=== PATIENT | female | born 1955 | race Caucasian/White ===

== ENCOUNTER 2017-05-01 08:45 | Inpatient (IN) | payer OTHER ==
[2017-04-16 12:53] VITALS: Ht 152.4 cm; Wt 67.5 kg
--- NOTE | 2017-04-16 13:28 | PAT Medication Instructions ---
Service Date Apr 16, 2017. Current Home Medication List Cholecalciferol (Vitamin D3), 5,000 UNITS PO QAM Ibuprofen Tab (Advil), 600 MG PO PRN Medication Instructions For Your Scheduled Surgery - Check with surgeon for instructions: Ibuprofen Tab (Advil), 600 MG PO PRN - Hold the following medications the morning of surgery: Cholecalciferol (Vitamin D3), 5,000 UNITS PO QAM If you have any questions please call us at [phone] or [phone] or [phone]
[2017-04-16 14:17] LABS: PTT PATIENT 25.8 SECONDS (21.0-31.0)
--- NOTE | 2017-04-16 14:18 | DIAGNOSTIC IMAGING REPORT ---
CHEST 2 VIEWS ROUTINE CLINICAL HISTORY: Preoperative chest COMPARISON STUDY: No previous studies for comparison. FINDINGS: The cardiac and mediastinal contours are normal. There is no evidence of focal pulmonary consolidation. There is no evidence of failure. No pleural effusions are visualized.[ IMPRESSION: No active disease in the chest. Electronically signed by: Job Mckeon M.D. 04/16/2017 2:17 PM Dictated Date/Time: 04/16/2017 2:17 PM
[2017-04-16 14:34] LABS: HEMOGLOBIN A1C 5.2 % (4.5-5.6)
--- NOTE | 2017-04-17 09:03 | HISTORY & PHYSICAL EXAMINATION ---
DATE OF ADMISSION: 05/01/2017 CHIEF COMPLAINT: Right hip pain. HISTORY OF PRESENT ILLNESS: Celestina is a 62-year-old female with a multiple year history of right hip pain. She rates her pain at 8-9/10. She has pain with her daily activities. She has limited standing and walking tolerance. Pain is worse with weightbearing. The patient has had Advil and injections in the past without relief. She has failed conservative treatment and is scheduled for a right hip replacement. PAST MEDICAL HISTORY: History of phlebitis. She denies heart disease, diabetes, or DVT. PAST SURGICAL HISTORY: Left shoulder rotator cuff repair and hysterectomy. SOCIAL HISTORY: The patient denies alcohol or tobacco use. She lives in a single story home. She is and works at [employer]. FAMILY HISTORY: Negative for DVT. MEDICATIONS: Vitamin D3 and Advil p.r.n. ALLERGIES: None. REVIEW OF SYSTEMS: See HPI. Ten other systems reviewed, all negative. PHYSICAL EXAMINATION: VITAL SIGNS: Height 5 feet 0 inch and weight 145 pounds. GENERAL: This is a well-developed and well-nourished female, who is alert and oriented x3. Mood and affect are appropriate. HEENT: Normocephalic and atraumatic. Mucous membranes are moist and intact. NECK: Supple without lymphadenopathy. HEART: Regular rate and rhythm without murmurs, rubs or gallops. LUNGS: Clear to auscultation without wheezes or rhonchi. ABDOMEN: Soft and nontender. Bowel sounds are equal and active. EXTREMITIES: No ecchymosis, redness or warmth. Log roll of the hip reproduces pain in the groin. Range of motion is decreased. She is neurovascularly intact with +5/5 strength. X-RAY EXAMINATION: AP and lateral views show joint space narrowing and osteophyte formation. IMPRESSION: Degenerative joint disease, right hip. PLAN: The patient will be admitted for a right total hip arthroplasty with Dr. Israel. We will plan on aspirin 325 mg for DVT prophylaxis. She will have [facility] for home physical therapy upon discharge.
[~2017-05-01] VITALS: Ht 152.4 cm; Wt 67.5 kg
[2017-05-01] VITALS (7 sets, daily range): BP systolic 93–150; BP diastolic 60–88; PULSE 75–92; TEMP 36.2–36.7; O2SAT 96–100
[~2017-05-01 08:45] MED LIST: ACETAMINOPHEN 500 MG TAB PO SCH; ATROPINE SULFATE 0.1 MG/ML 5ML SYR IV PRN; BUPIVACAINE 0.5 % 5 MG/1 ML PF 10ML VIAL ONE; CEFAZOLIN 1000MG IV PUSH 5 ML IV SCH; CHOL20007 PO; CeleBREX 200 MG CAP PO SCH; DEXAMETHASONE 4 MG TAB PO SCH; EpHEDrine SULFATE INJ 50 MG/ML AMP IV PRN; FAMOTIDINE 20 MG TAB PO SCH; FENTANYL CITRATE INJ 50 MCG/1 ML 2 ML VIAL ONE; GABAPENTIN 300 MG CAP PO SCH; HYDROmorphone INJ 2 MG/ML SYR/VIAL IV PRN; IBUP-103 PO; LACTATED RINGER'S 1000ML 1,000 ML IV SCH; LACTATED RINGER'S 1000ML 500 ML IV SCH; LACTATED RINGER'S 1000ML IV SCH; METOCLOPRAMIDE HCL 10 MG TAB PO SCH; MIDAZOLAM HCL 1 MG/ML 2ML VIAL ONE; ONDANSETRON INJ 2 MG/ML 2 ML VIAL IV PRN; PHENYLEPHRINE 100MCG/ML 5ML SYR IV PRN; PROPOFOL IV EMULSION 10 MG/ML 20 ML VIAL IV ONE; ROPIVACAINE 5MG/ML 30 ML 150 MG, BUPIVACAINE 0.5% MPF INJ 30 ML, EpINEphrine HCL INJ 0.... INFIL SCH
--- NOTE | 2017-05-01 09:43 | History & Physical Bridge Note ---
H&P Re-Evaluation Bridge Note: I have examined the patient, reviewed the History & Physical and in the interval since the performance of the History & Physical I have noted the following changes of clinical significance: No changes noted
[2017-05-01] MEDS ORDERED: ORTHO JOINT ANESTHETIC ONE (09:52)
[2017-05-01] MEDS ORDERED: POVIDONE-IODINE OP SOLN 30 ML BTL ONE (09:53)
[2017-05-01] MEDS ORDERED: BACITRACIN 50000 UNIT VIAL ONE (09:53)
[2017-05-01] MEDS: TRANEXAMIC ACID INJ 1,000 MG in SYRINGE 0 ML IV SCH ×2 (11:10→16:01)
[2017-05-01] MEDS ORDERED: MIDAZOLAM HCL 1 MG/ML 2ML VIAL ONE ×2 (11:38→12:39)
[2017-05-01] MEDS ORDERED: PHENYLEPHRINE 100MCG/ML 5ML SYR ONE (11:41)
[2017-05-01] MEDS ORDERED: EpHEDrine SULFATE 50MG/5ML SYR ONE (11:50)
[2017-05-01] MEDS ORDERED: PROPOFOL IV EMULSION 10 MG/ML 20 ML VIAL IV ONE (12:59)
[2017-05-01] MEDS ORDERED: PHENYLEPHRINE HCL INJ 10 MG/ML VIAL ONE (13:01)
[2017-05-01] MEDS ORDERED: ONDANSETRON INJ 2 MG/ML 2 ML VIAL ONE (13:31)
[2017-05-01] MEDS ORDERED: ONDANSETRON INJ 2 MG/ML 2 ML VIAL IV PRN (13:45)
[2017-05-01] MEDS ORDERED: MoRPHine SULFATE 4 MG/ML 1 ML CARP\\VIAL IV PRN (13:45)
[2017-05-01] MEDS ORDERED: OXYCODONE HCL IR 5 MG TAB (IMMEDIATE RELEASE) PO PRN (13:45)
--- NOTE | 2017-05-01 13:50 | [facility] Post Operative Brief Note ---
Immediate Operative Summary Operative Date May 01, 2017. Pre-Operative Diagnosis Right Hip Degenerative Joint Disease Post-Operative Diagnosis Right Hip Degenerative Joint Disease Procedure(s) Performed Right Total Hip Arthroplasty Surgeon Dr. Israel Sorter Packer Surgeon(s) Maggie Szymanski PA-C Estimated Blood Loss 100 mL Findings see dictated op note Fluids (cc crystalloids) 2200 Specimens A: Right Femoral Head- specimen to go to K-9 unit, lab made aware Drains none Anesthesia spinal Complication(s) None Disposition Recovery Room / PACU
--- NOTE | 2017-05-01 14:30 | Anesthesiology Progress Note ---
Anesthesia Post Op Note Date & Time May 01, 2017 at 14:30 Vital Signs Pain Intensity: 0 Vital Signs Past 12 Hours Date Time Temp Pulse Resp B/P (MAP) Pulse Ox O2 Delivery O2 Flow Rate FiO2 05/01/17 14:20 65 13 110/71 100 Oxymask 10 05/01/17 14:10 36.0 84 12 98/63 100 Oxymask 10 05/01/17 09:18 36.7 92 18 150/88 97 Room Air Notes Mental Status: alert / awake / arousable, participated in evaluation Pt Amnestic to Procedure: Yes Nausea / Vomiting: adequately controlled Pain: adequately controlled Airway Patency, RR, SpO2: stable & adequate BP & HR: stable & adequate Hydration State: stable & adequate Anesthetic Complications: no major complications apparent
--- NOTE | 2017-05-01 14:45 | DIAGNOSTIC IMAGING REPORT ---
R PELVIS/UNILATERAL HIP 1 VIEW CLINICAL HISTORY: Right hip osteoporosis. Arthroplasty. COMPARISON: None FINDINGS: Alignment of the total right hip arthroplasty is anatomic. There is no periprosthetic fracture or unexpected radiopaque foreign body. Acetabular screw is in place. IMPRESSION: Expected findings following total right hip arthroplasty. Electronically signed by: Cecilio Shah M.D. 05/01/2017 2:43 PM Dictated Date/Time: 05/01/2017 2:42 PM
[2017-05-01] MEDS: SODIUM CHLORIDE 0.9% 1000ML 1,000 ML IV SCH (16:01)
--- NOTE | 2017-05-01 16:16 | Orthopedic Progress Note ---
Orthopedic Progress Note Date of Service May 01, 2017. Subjective Reports: feeling well, pain controlled w PO medications, Denies: complaints, chest pain, SOB, nausea / vomiting, light headedness, calf pain Additional Notes: Patient seen laying in bed, comfortable, pain well controlled, still feeling effects of spinal and local anesthesia. Objective RLE decreased sensation grossly, still feeling effects of spinal/local anesthetic. +2 DP pulse, dressing CDI, compartments soft NT Date Time Temp Pulse Resp B/P (MAP) Pulse Ox O2 Delivery O2 Flow Rate FiO2 05/01/17 16:05 36.2 88 16 100/65 (77) 99 Nasal Cannula 2.0 05/01/17 15:00 36.4 76 13 103/60 99 Nasal Cannula 2 05/01/17 14:45 78 20 93/60 100 Nasal Cannula 2 05/01/17 14:40 77 14 100/59 100 Nasal Cannula 2 05/01/17 14:30 75 24 96/67 100 Nasal Cannula 2 05/01/17 14:20 65 13 110/71 100 Oxymask 10 05/01/17 14:10 36.0 84 12 98/63 100 Oxymask 10 05/01/17 09:18 36.7 92 18 150/88 97 Room Air Assessment & Plan Assessment: s/p R SUSAN -NV checks -Ancef x 24hr -DVT ppx: ASA BID -WBAT RLE with assistance -PT/OT -PO XR: well aligned, well fixed prothesis, no fractures/dislocation -AM labs -DC planing: Home with home health
[2017-05-01] MEDS: CEFAZOLIN IV 2,000 MG in SYRINGE 0 ML IV SCH (19:59)
--- NOTE | 2017-05-01 20:33 | [facility] Operative Report ---
Operative Report Operative Date May 01, 2017. Pre-Operative Diagnosis Right Hip Degenerative Joint Disease Post-Operative Diagnosis Right Hip Degenerative Joint Disease Procedure(s) Performed Right Total Hip Arthroplasty Surgeon Dr. Israel Sap Pi Developer Surgeon(s) Maggie Szymanski PA-C Estimated Blood Loss 100 mL Findings see dictated op note Fluids 2200 Specimens A: Right Femoral Head- specimen to go to K-9 unit, lab made aware Drains none Anesthesia spinal Complication(s) None Disposition Recovery Room / PACU Indications The patient is a 62-year-old female who presents with severe progressive right hip DJD who has failed outpatient conservative treatments. I indicated the patient for a total hip replacement and the risks and benefits were explained in detail which included but not limited to infection, bleeding, blood clot, damage to surrounding bone, nerves, vessels, soft tissue, hip dislocation, failure of the prosthesis, leg length discrepancy, need for additional surgery and . The patient agreed to proceed with replacement of the right hip and informed consent was obtained. Description of Procedure Following induction of adequate spinal anesthesia, the patient was transferred to the OR table and placed in lateral decubitus position with left hip down. The right hip was prepped and draped in the typical sterile fashion and a posteriorlateral/Rishi-Langenbeck incision was made. Subcutaneous tissue was sharply dissected. Electrocautery was utilized for hemostasis. The fascia was incised throughout the length of the wound and retracted with the Charnley retractor. The bursa was taken down and the short external rotators were identified. The piriformis was tagged with #1 Vicryl. The short external rotators and capsule were divided from the posterior aspect of the femurusing electrocautery. The posterior capsule was tagged with #1 Vicryl. Both external rotators and posterior capsule were swept posteriorly and protected, along with protecting the sciatic nerve. The hip was dislocated by flexion and internally rotation in a controlled manner and exposure of the femoral neck was gained with an old-style Hohmann and a blunt cobra retractor. A femoral cutting guide was utilized for making the appropriate level femoral neck cut with reciprocating saw. The femoral head was removed, measured and reserved on the back table. Next, attention was turned to the acetabulum. A posterior and anterior offset retractor was placed to gain adequate exposure. Acetabular labrum as well as posterior capsule elements were removed using electrocautery and forceps. Fovea centralis was cleared of all soft tissue. Sequential reaming was performed starting at 44mm and carried up to a 49mm and decision was made to proceed with impaction of a 50mm trabecular metal cup. This was impacted and held using a single 30 mm bone screw. The trial acetabular liner was placed at this time. Next, attention was turned to the femoral portion of the case where a Bovie and pickup was used to further clear short external rotators from their insertion on the femur. Box osteotome and canal finder was used to gain access to the femoral canal and the lateral reamer on power was used to further open the proximal lateral canal. Sequentially rasping was carried up to a 9 which gave good fit and fill of the proximal femur. A trial reduction was carried out with a extended offset femoral neck component a -3.5 x 36 mm femoral head. The trial reduction was stable in all degrees of rotation with no [id number] impingement. The hip was dislocated, trial components were removed and access to the acetabulum was re-established. The trial liner was removed and the cup was irrigated to ensure all debris was removed. The final acetabular liner was inserted and properly seated in the cup. Access to the femur was once more gained and the size 9 femoral stem with extended offset was impacted into position. The hip was once more assessed with the -3.5 x 36mm femoral head. Stability was accessed and found to be excellent with equal leg lengths. The hip was dislocated for the last time and the final -3.5 x 36mm ceramic femoral head was impacted in place and the hip was reduced. Range of motion was checked once again and found to be stable. The wound was copiously irrigated with sterile saline solution. The malia-incisional soft tissue was injected utilizing [place] ortho mix which includes a combination of Ropivicaine 0.5% 150mg, Bupivicaine 0.5%/Epinephrine 1:200,000 30ml, Toradol 30mg, Dexamethasone 4mg, Ketamine 10mg, Clonidine 100mcg and NSS 30ml Orthomix solution. The piriformis, external rotators and capsule were repaired to the greater trochanter through bone tunnels using #5 FiberWire. The fascia was closed using #1 Vicryl, subcutaneous tissue was closed using 2-0 Vicryl, and skin was closed with 3-0 V-lock suture and Dermabond Prineo. Sterile dressings were applied which included pancho, 4x4s and tegaderm adhesive dressing. The patient tolerated the procedure well and was transported to PACU in stable condition. Due to the complex nature of the procedure, the entire surgery was performed with the operational assistance of Lizzette Szymanski PA-C. The certified ophthalmic assistant, under direct supervision, was involved in the actual performance of all aspects of the surgical procedure including hemostasis, tissue retraction and incision, instrument management, patient positioning, and wound closure. I attest to the content of the Intraoperative Record and any orders documented therein. Any exceptions are noted below.
[2017-05-01] MEDS ORDERED: SENNA 8.6 MG TAB PO SCH (21:00)
[2017-05-01] MEDS: ACETAMINOPHEN 500 MG TAB PO SCH (21:47)
[2017-05-01] MEDS: ASPIRIN 325 MG ECTAB PO SCH (21:48)
[2017-05-01] MEDS: DOCUSATE SODIUM 100 MG CAP PO SCH (21:49)
[2017-05-02] MEDS: SODIUM CHLORIDE 0.9% 1000ML 1,000 ML IV SCH ×2 (01:45→10:59)
[2017-05-02 03:16] VITALS: BP 95/60; PULSE 83; TEMP 36.6; O2SAT 97
[2017-05-02] MEDS: CEFAZOLIN IV 2,000 MG in SYRINGE 0 ML IV SCH (04:16)
[2017-05-02 06:32] LABS: BASO % 0.1 %; BASO ABS # 0.01 K/uL (0-0.2); HEMATOCRIT 32.2 % (37-47); HEMOGLOBIN 10.8 g/dL (12.0-16.0); IG# 0.04 K/uL (0.00-0.02); LYMPH % 12.6 %; LYMPH ABS # 1.32 K/uL (1.2-3.4); MEAN CELL VOLUME 90.4 fL (80-100); MEAN CORPUSCULAR HEMOGLOBIN 30.3 pg (25-34); MEAN CORPUSCULAR HGB CONC 33.5 g/dl (32-36); MONO ABS # 0.84 K/uL (0.11-0.59); NEUT % 78.9 %; NEUT ABS # 8.26 K/uL (1.4-6.5); PLATELET COUNT 189 K/uL (130-400); RED CELL DISTRIBUTION WIDTH CV 13.6 % (11.5-14.5); RED CELL DISTRIBUTION WIDTH SD 45.1 fL (36.4-46.3); WHITE BLOOD COUNT 10.47 K/uL (4.8-10.8)
[2017-05-02] MEDS: ACETAMINOPHEN 500 MG TAB PO SCH (06:33)
[2017-05-02 07:07] LABS: CALCIUM 8.7 mg/dl (8.5-10.1); CREATININE 0.81 mg/dl (0.60-1.20); POTASSIUM 3.9 mmol/L (3.5-5.1)
--- NOTE | 2017-05-02 07:40 | Orthopedic Progress Note ---
Orthopedic Progress Note Date of Service May 02, 2017. Subjective Post OP Day: 1 Reports: feeling well, Denies: complaints, SOB, nausea / vomiting, light headedness, calf pain, pain controlled w PO medications Additional Notes: Patient seen, comfortable, pain well controlled overnight, c/o stiffness, no acute issues Objective RLE NVSI +EHL/FHL/TA/GS SILT grossly, CR< 2 seconds, compartments soft NT, dressing CDI Date Time Temp Pulse Resp B/P (MAP) Pulse Ox O2 Delivery O2 Flow Rate FiO2 05/02/17 03:16 36.6 83 18 95/60 (72) 97 Room Air 05/01/17 23:35 Room Air 05/01/17 23:06 36.4 77 18 97/60 (72) 96 Room Air 05/01/17 19:17 97 Room Air 05/01/17 18:47 36.4 75 16 100/66 (77) 96 Nasal Cannula 2.0 05/01/17 17:33 36.2 85 18 93/62 (72) 99 Nasal Cannula 2.0 05/01/17 16:33 36.3 83 16 99/66 (77) 100 Nasal Cannula 2.0 05/01/17 16:05 36.2 88 16 100/65 (77) 99 Nasal Cannula 2.0 05/01/17 15:30 Nasal Cannula 2.0 05/01/17 15:30 Nasal Cannula 2.0 05/01/17 15:00 36.4 76 13 103/60 99 Nasal Cannula 2 05/01/17 14:45 78 20 93/60 100 Nasal Cannula 2 05/01/17 14:40 77 14 100/59 100 Nasal Cannula 2 05/01/17 14:30 75 24 96/67 100 Nasal Cannula 2 05/01/17 14:20 65 13 110/71 100 Oxymask 10 05/01/17 14:10 36.0 84 12 98/63 100 Oxymask 10 05/01/17 09:18 36.7 92 18 150/88 97 Room Air Laboratory Results 24 Hours: Test 05/02/17 05:59 White Blood Count 10.47 K/uL Red Blood Count 3.56 M/uL Hemoglobin 10.8 g/dL Hematocrit 32.2 % Mean Corpuscular Volume 90.4 fL Mean Corpuscular Hemoglobin 30.3 pg Mean Corpuscular Hemoglobin Concent 33.5 g/dl Platelet Count 189 K/uL Mean Platelet Volume 9.0 fL Neutrophils (%) (Auto) 78.9 % Lymphocytes (%) (Auto) 12.6 % Monocytes (%) (Auto) 8.0 % Eosinophils (%) (Auto) 0.0 % Basophils (%) (Auto) 0.1 % Neutrophils # (Auto) 8.26 K/uL Lymphocytes # (Auto) 1.32 K/uL Monocytes # (Auto) 0.84 K/uL Eosinophils # (Auto) 0.00 K/uL Basophils # (Auto) 0.01 K/uL Prothromb Time International Ratio 1.0 Prothrombin Time 10.8 SECONDS Assessment & Plan Assessment: s/p R SUSAN POD#1 -NV checks -Ancef x 24hr -DVT ppx: ASA BID -WBAT RLE with assistance -PT/OT -PO XR: well aligned, well fixed prothesis, no fractures/dislocation -AM labs - hgb 10.8 -DC planing: Home with home health today
[2017-05-02] MEDS ORDERED: ACET-24 PO (07:46)
[2017-05-02] MEDS ORDERED: CLB200 PO (07:46)
[2017-05-02] MEDS ORDERED: ASPEC325 PO (07:46)
[2017-05-02] MEDS ORDERED: ONDA8TAB6 PO (07:46)
[2017-05-02] MEDS ORDERED: RXC5 PO (07:46)
[2017-05-02] MEDS ORDERED: SENN-61 PO (07:46)
--- NOTE | 2017-05-02 07:47 | Discharge Instructions ---
Discharge Instructions Date of Service May 02, 2017. Admission Reason for Admission: Right Hip Osteoarthritis Discharge Discharge Diagnosis / Problem: sp right SUSAN Discharge Goals Goal(s): Decrease discomfort, Improve function, Increase independence Activity Recommendations Activity Limitations: per Instructions/Follow-up section . Instructions / Follow-Up Instructions / Follow-Up ACTIVITY RECOMMENDATIONS: SELF CARE INSTRUCTIONS AFTER TOTAL HIP REPLACEMENT Until the incision and soft tissues around your hip have healed, there is a possibility that the hip prosthesis could dislocate. A. Observe the following precautions to prevent dislocation: 1. Don't bend your hip greater than 90 degrees. 2. Avoid crossing your legs or ankles while standing or lying. 3. Sit with your feet placed 6 inches apart. 4. When sitting, keep your knees below your hips. Sit on a firm surface, avoid deep, soft chairs and couches. Use an elevated toilet seat in the bathroom. 5. Don't bend over at the waist. Use a long handled shoehorn and a sock aid to help you put on your shoes and socks. A speech therapist early intervention can help you pickup driver objects that are too high or too low to reach. 6. Keep car riding to a minimum for at least one month after surgery. B. Your balance may be shaky for a while. Use crutches or a walker until directed by your doctor. C. Use hand rails when walking on stairs. D. Wear low heeled shoes with non-slip soles. E. Be sure that your floors are free of things that could trip you - throw rugs , electrical cords, small objects. Avoid wet and waxed floors, especially with crutches and canes. F. Try to walk several times a day with rest periods between. G. Continue with all the exercises taught to you in the hospital. Again, make walking a part of your daily routine. SPECIAL CARE INSTRUCTIONS: VERY IMPORTANT TO READ AND REVIEW A. You may still be at risk for phlebitis and blood clots. 1. Wear surgical stockings (YSABEL hose) for 2 weeks after surgery to improve circulation and reduce swelling. 2. Take Aspirin 325 mg twice daily for 4 weeks or as directed by your doctor. This is your blood thinner. 3. High risk patients may be prescribed a stronger blood thinner if necessary. 4. If you are on Coumadin normally, your family doctor/saddle stitch operator should monitor your blood work. Expect a phone call the day of or the day after bloodwork is drawn to adjust your dosage. B. You must take antibiotics before having dental work, bladder, bowel and other surgery. Your doctor will provide you with a permanent card to carry describing precautions. C. Call [facility] if you have a fever, redness or swelling around the incision, cloudy drainage from incision, or sudden increase in pain in your hip, not relieved by your regular pain medication. D. Please call the office at if you have any concerns or questions about your operation or recovery. * YOU MAY SHOWER, NO TUB BATHS UNTIL CLEARED BY YOUR DOCTOR. * WEAR YSABEL HOSE 20 HOURS PER DAY FOR 2 WEEKS. * YOU SHOULD USE A WALKER OR CRUTCHES FOR 2-4 WEEKS. THIS WILL HELP PREVENT STRAIN ON YOUR HIP MUSCLE AND ALLOW IT TO HEAL PROPERLY. YOU MAY WEAN TO A CANE TOLERATED. * MOST PATIENTS WILL HAVE HOME NURSING FOR THERAPY. IF YOU DECIDE TO DO OUTPATIENT PHYSICAL THERAPY, PLEASE SCHEDULE THIS 3 TIMES PER WEEK. * DERMABOND Prineo- This is a mesh tape dressing that is covered with glue. It should remain in place until the incision is properly healed, usually 10-14 days. This dressing is designed to naturally slough off. You may trim the excess mesh tape as it peels off. Incision may be briefly wet in a shower. Dry immediately by blotting with a clean, dry towel. Do not bath or swim until instructed by your doctor. Do not scratch, rub, or pick at the dressing. Do not apply any topical ointments or lotions until dressing is completely removed and/or instructed by your doctor. There may be a small piece of suture material at one end of your incision. Do not pull or trim this. If it is bothersome or catching on clothing, you may cover it with a band-aid. FOLLOW UP VISIT: If appointment is not already scheduled: Please call [facility] to make a follow-up appointment for 2 weeks after your surgery at . Current Hospital Diet Patient's current hospital diet: Regular Diet Discharge Diet Recommended Diet: Regular Diet Procedures Procedures Performed: Right Total Hip Arthroplasty Pending Studies Studies pending at discharge: no Laboratory Results Hemoglobin A1c Test 04/16/17 13:30 Range/Units Estimated Average Glucose 103 mg/dl Hemoglobin A1c 5.2 4.5-5.6 % Medical Emergencies . Who to Call and When: Medical Emergencies: If at any time you feel your situation is an emergency, please call 911 immediately. . Non-Emergent Contact Non-Emergency issues call your: Surgeon . "Provider Documentation" section prepared by Maggie Szymanski. . VTE Core Measure Inpt VTE Proph given/why not?: Other Anticoagulation, T.E.D. Stockings, SCD's [place] Drug Monitoring Program Search Results: patient reviewed within database, no issues identified
[2017-05-02 07:49] VITALS: BP 90/52; PULSE 80; TEMP 36.6; O2SAT 95
[2017-05-02 07:59] VITALS: O2SAT 95
[2017-05-02] MEDS: DOCUSATE SODIUM 100 MG CAP PO SCH (08:21)
[2017-05-02] MEDS: ASPIRIN 325 MG ECTAB PO SCH (08:21)
--- NOTE | 2017-05-02 08:49 | Anesthesiology Progress Note ---
Anesthesia Post Op Note Date & Time May 02, 2017 at 08:48 Vital Signs Vital Signs Past 12 Hours Date Time Temp Pulse Resp B/P (MAP) Pulse Ox O2 Delivery O2 Flow Rate FiO2 05/02/17 07:59 95 Room Air 05/02/17 07:49 36.6 80 16 90/52 (65) 95 Room Air 05/02/17 07:25 Room Air 05/02/17 03:16 36.6 83 18 95/60 (72) 97 Room Air 05/01/17 23:35 Room Air 05/01/17 23:06 36.4 77 18 97/60 (72) 96 Room Air Notes Mental Status: alert / awake / arousable, participated in evaluation Pt Amnestic to Procedure: Yes Nausea / Vomiting: adequately controlled Pain: adequately controlled Airway Patency, RR, SpO2: stable & adequate BP & HR: stable & adequate Hydration State: stable & adequate Neuraxial Anesthesia: was administered, sensory block resolved Anesthetic Complications: no major complications apparent
[2017-05-02] MEDS ORDERED: MULTIVITAMIN TAB PO SCH (09:00)
[2017-05-02] MEDS ORDERED: PANTOprazole SOD 40 MG TAB PO SCH (09:00)
[2017-05-02 10:58] VITALS: BP 99/62; PULSE 83; O2SAT 96
[2017-05-02 11:55] VITALS: BP 99/63; PULSE 78; TEMP 36.5; O2SAT 99
--- NOTE | 2017-05-14 08:37 | DISCHARGE SUMMARY ---
DISCHARGE DIAGNOSIS: Degenerative joint disease, right hip. SECONDARY DIAGNOSIS: None. CONSULTS: None. COMPLICATIONS: None. PROCEDURE: The patient underwent a right total hip arthroplasty with Dr. Israel on 05/01/2017. BRIEF HISTORY: Please see previously dictated history and physical. HOSPITAL SUMMARY: The patient was admitted on the above day for the above procedure. Procedure went without complication. Postop day 1, the patient was feeling well without complaints. She denied chest pain or shortness of breath. Vital signs were stable. She was afebrile. Dressing was clean, dry and intact. She was neurovascularly intact. Calves were soft and nontender. Capillary refill was less than 2 seconds. Hemoglobin was 10.8. The patient began physical therapy per protocol. Postop x-rays showed a well-aligned, well fixed prosthesis. The patient was discharged home with home health later that day in stable condition. For further review please see the chart. Lab, x-ray data and discharge instructions as per chart.
== END 2017-05-02 14:02 | disposition home health service (06) | DRG 470 ==
LOC: C.ACU 08:45 → C.3E 09:30 → ENRESERV 15:04
PROVIDERS: ADMIT Orthopaedic Surgery; ATTEND Orthopaedic Surgery
PROC: 0SR903Z Replacement of Right Hip Joint with Ceramic Synthetic Substitute, Open Approach (ICD-10-PCS; principal; 2017-05-01 11:00)
DX: M16.11 Unilateral primary osteoarthritis, right hip (principal); E78.5 Hyperlipidemia, unspecified; Z90.710 Acquired absence of both cervix and uterus